=== PATIENT | female | born 1965 | race Caucasian/White ===

== ENCOUNTER 2017-04-06 09:53 | Day surgery (SDC) | payer BC ==
[~2017-04-06 09:53] MED LIST: Lactated Ringers 1,000 ML IV SCH; Sodium Chloride 0.9% 10 ML Syringe FLUSH PRN; Sodium Chloride 0.9% 2.5 ML Syringe FLUSH PRN
[2017-04-06] MEDS ORDERED: Ondansetron 4 MG/2 ML SDV ONE (10:44)
[2017-04-06] MEDS ORDERED: Propofol 200 MG/20 ML SDV ONE (10:44)
[2017-04-06] MEDS ORDERED: fentaNYL 100 MCG/2 ML SDV ONE (10:45)
[2017-04-06] MEDS ORDERED: Midazolam 1 MG/ML 2 ML SDV ONE (10:45)
--- NOTE | 2017-04-06 11:07 | PCM.PREANE ---
Preanesthetic Assessment - Anesthesia/Transfusion/Family Hx Anesthesia History: Prior Anesthesia Without Reaction Family History of Anesthesia Reaction: No Transfusion History: No Prior Transfusion(s) Intubation History: Unknown - Review of Systems General: No Symptoms, Night Sweats Cardiovascular: No Symptoms Gastrointestinal: Constipation Neurological: No Symptoms Other: Reports: None - Physical Assessment O2 Sat by Pulse Oximetry: 99 Respiratory Rate: 16 Vital Signs: Last Vital Signs Temp 36.3 C 04/06/17 10:48 Pulse 62 04/06/17 10:48 Resp 16 04/06/17 10:48 BP 103/71 04/06/17 10:48 Pulse Ox 99 04/06/17 10:48 Height: 1.73 m Weight: 65.771 kg ASA Class: 1 Mental Status: Alert & Oriented x3 Airway Class: Mallampati = 2 Dentition: Reports: Normal Dentition Thyro-Mental Finger Breadths: 3 Mouth Opening Finger Breadths: 3 ROM/Head Extension: Full Lungs: Clear to Auscultation, Normal Respiratory Effort Cardiovascular: Regular Rate, Regular Rhythm - Allergies Allergies/Adverse Reactions: Allergies Allergy/AdvReac Type Severity Reaction Status Date / Time No Known Allergies Allergy Verified 04/03/17 09:31 - Blood Blood Available: No - Anesthesia Plan Pre-Op Medication Ordered: None - Acknowledgements Anesthesia Type Planned: MAC Pt an Appropriate Candidate for the Planned Anesthesia: Yes Alternatives and Risks of Anesthesia Discussed w Pt/Guardian: Yes Pt/Guardian Understands and Agrees with Anesthesia Plan: Yes PreAnesthesia Questionnaire Gastrointestinal History: Reports: None Genitourinary History: Reports: None [employer] History: Reports: Musculoskeletal History: Reports: Back Pain, Chronic, Neck Pain, Chronic - Past Surgical History Head Surgeries/Procedures: Reports: None GI Surgical History: Reports: Appendectomy Female Surgical History: Reports: Breast Biopsy, Section, Hysterectomy, Oophorectomy - SUBSTANCE USE Smoking Status *Q: Never Smoker Recreational Drug Use History: No - HOME MEDS Home Medications: Home Meds Estradiol [Vivelle-Dot] 1 patch TRDERM ASDIRECTED 04/04/17 [History] valACYclovir HCl [valACYclovir] 2 tab PO ASDIRECTED PRN 04/04/17 [History] - CURRENT (IN HOUSE) MEDS Current Meds: Current Medications Lactated Ringer's (Ringers, Lactated) 1,000 mls @ 125 mls/hr IV ASDIRECTED MARY JO Last Admin: 04/06/17 10:49 Dose: 125 mls/hr Sodium Chloride (Saline Flush) 10 ml FLUSH ASDIRECTED PRN PRN Reason: Keep Vein Open Sodium Chloride (Saline Flush) 2.5 ml FLUSH ASDIRECTED PRN PRN Reason: Keep Vein Open Discontinued Medications Fentanyl (Sublimaze) Confirm Administered Dose 100 mcg .ROUTE .STK-MED ONE Stop: 04/06/17 10:46 Lidocaine HCl (Xylocaine-Mpf 1%) Confirm Administered Dose 5 ml .ROUTE .STK-MED ONE Stop: 04/06/17 10:45 Midazolam HCl (Versed 1 Mg/Ml) Confirm Administered Dose 2 mg .ROUTE .STK-MED ONE Stop: 04/06/17 10:46 Ondansetron HCl (Zofran) Confirm Administered Dose 4 mg .ROUTE .STK-MED ONE Stop: 04/06/17 10:45 Propofol (Diprivan 20 Ml) Confirm Administered Dose 200 mg .ROUTE .STK-MED ONE Stop: 04/06/17 10:45
--- NOTE | 2017-04-06 18:20 | OR ---
SURGEON: LIN STRONG MD DATE OF PROCEDURE: 04/06/2017 PREOPERATIVE DIAGNOSIS: Screening colonoscopy. POSTOPERATIVE DIAGNOSIS: Grade 2 hemorrhoids. PROCEDURE PERFORMED: Screening colonoscopy. ENDOSCOPIST: Lin Strong M.D. INSTRUMENT USED: Olympus colonoscope. ANESTHESIA: MAC. EXTENT OF EXAM: To the cecum. PREPARATION: Good. LIMITATIONS: None. INDICATION FOR EXAMINATION: The patient is a 51-year-old female who presents for first time screening colonoscopy. Both of her parents had colon polyps removed before the age of 60. We discussed the procedure as well as expected perioperative course. We discussed the risks including bleeding, infection, or damage to surrounding structures including perforation. The patient verbalized understanding and wishes to proceed. PROCEDURE IN DETAIL: The patient was brought into the endoscopy suite and placed in a left lateral decubitus position. A time-out was completed verifying the patient's name, age, date of , allergies, and procedure to be performed. Monitored anesthesia care was induced and continuous oxygen was provided via nasal cannula throughout the procedure. After adequate sedation was achieved, a digital rectal exam was performed. The patient was found to have one anterior prolapsed hemorrhoid, which was easily reduced with manipulation. The remainder of the exam was normal. A well lubricated colonoscope was inserted in the rectum and advanced under direct visualization to the level of cecum. The cecum was identified by both visual and anatomic landmarks. A photograph was taken of the cecal cap as well as with the scope in the retroflexed position. The scope was then straightened out and fully withdrawn while examining the color, texture, anatomy, and integrity of the mucosa from the cecum to the anal canal. The remainder of the colonoscopy was normal. The scope was brought into the rectum and retroflexed to allow visualization of the anal canal opening. The internal hemorrhoids were slightly enlarged. The scope was straightened out and removed from the patient. The cecum to anus time was 10 minutes. The patient tolerated the procedure well and was taken to PACU in stable condition. ENDOSCOPIC DIAGNOSIS: Grade 2 hemorrhoids. RECOMMENDATIONS: Follow up in clinic in 2 weeks. TRINA SERRATO /[id number]
== END 2017-04-06 13:55 | disposition home or self-care (01) ==
LOC: MW.SDS 09:53
PROVIDERS: ATTEND Surgery
DX: Z12.11 Encounter for screening for malignant neoplasm of colon (principal); K64.1 Second degree hemorrhoids; Z83.71 Family history of colonic polyps; Z90.49 Acquired absence of other specified parts of digestive tract; Z90.710 Acquired absence of both cervix and uterus; Z90.721 Acquired absence of ovaries, unilateral; Z98.890 Other specified postprocedural states
CPT/HCPCS: 45378; J2250; J2405; J3010; J7120; J2704